=== PATIENT | female | born 1990 | race Two or more races ===

== ENCOUNTER 2021-05-06 21:37 | Emergency (ER) | payer OTHER ==
[~2021-05-06] VITALS: Ht 160 cm; Wt 111.6 kg
[2021-05-06] MEDS ORDERED: TENAZEPAN (22:06)
[2021-05-06] MEDS ORDERED: [UNRECOGNIZED DRUG - OTHER] (22:07)
[2021-05-06] MEDS ORDERED: CLONOPIN (22:07)
== END 2021-05-06 23:28 | disposition left against medical advice (07) ==
LOC: ER 21:37
DX: Z53.29 Procedure and treatment not carried out because of patient's decision for other reasons (principal); F41.9 Anxiety disorder, unspecified; R00.0 Tachycardia, unspecified